=== PATIENT | male | born 1990 | race Hispanic/Latino ===

== ENCOUNTER 2017-03-05 22:26 | Emergency (ER) | payer OTHER ==
[2017-03-05 22:39] VITALS: BP 133/83
--- NOTE | 2017-03-05 23:05 | RADIOLOGY REPORT ---
EXAMINATION: XR CHEST CLINICAL INFORMATION: Bronchitis COMPARISON: None TECHNIQUE: 2 views of the chest were obtained. FINDINGS: No infiltrate. Lung sumner are grossly clear. The heart size is normal. Hilar structures are not enlarged. No effusion. IMPRESSION: No acute process.
[2017-03-06] MEDS ORDERED: BROMFED DM COU118 M1 PO (01:15)
--- NOTE | 2017-03-06 01:16 | ED INFLUENZA/URI COMPLAINT ---
History of Present Illness General Chief Complaint: General Adult Stated Complaint: "EAR PAIN, SORE THROAT,WET COUGH" Source: patient Exam Limitations: no limitations Vital Signs & Intake/Output Vital Signs & Intake/Output Vital Signs Date Time Temp Pulse Resp B/P B/P Pulse O2 O2 Flow FiO2 Mean Ox Delivery Rate 03/059 97.3 95 22 133/83 98 ED Intake and Output 03/06 0000 03/05 1200 Intake Total Output Total Balance Patient 173 lb Weight Allergies Coded Allergies: NO KNOWN ALLERGIES (02/02/13) Triage Note: PER PT DX WITH COLD 3 WEEKS AGO, STILL FEEL AWFUL MY EARS FEEL LIKE WATER IN THEM, THINK I HAVE BRONCHITIS Triage Nurses Notes Reviewed? yes HPI: Patient presents for evaluation of ear pains sore throat and a cough productive of mucus that has been present for about 3 weeks. Patient has also suffered a runny nose/nasal congestion during that time. He was prescribed Mucinex D and a metered-dose inhaler and seemed to get better. However over the past few days his symptoms have begun to get worse again. He has had no relief with over-the- counter cough and cold medications. Past History Travel History Traveled to [place] past 21 day No Medical History Any Pertinent Medical History? see below for history Neurological: NONE EENT: NONE Cardiovascular: NONE Respiratory: NONE Gastrointestinal: NONE Hepatic: NONE Renal: NONE Musculoskeletal: NONE Psychiatric: NONE Endocrine: NIDDM Surgical History Surgical History: non-contributory Psychosocial History What is your primary language Australian Tobacco Use: Current Daily Use Daily Tobacco Use Amount/Type: => 5 Cigarettes daily Family History Hx Contributory? No Review of Systems Review of Systems Constitutional: Reports: no symptoms. EENTM: Reports: see HPI. Respiratory: Reports: see HPI. Cardiovascular: Reports: no symptoms. GI: Reports: no symptoms. Genitourinary: Reports: no symptoms. Musculoskeletal: Reports: no symptoms. Skin: Reports: no symptoms. Neurological/Psychological: Reports: no symptoms. Hematologic/Endocrine: Reports: no symptoms. Immunologic/Allergic: Reports: no symptoms. All Other Systems: Reviewed and Negative Physical Exam Physical Exam Ears, Nose, Throat: SEE BELOW Comments: Gen.: Well-nourished, well-developed, no acute respiratory distress. Head: Normocephalic, atraumatic. Eyes: Normal inspection bilaterally Ears: Normal inspection bilaterally, TMs and canals normal bilaterally Nose: Normal inspection Throat/mouth : Moist mucosa , no oropharyngeal erythema soft tissue swelling or exudates Neck: Supple, full range of motion, no goiter Heart: Regular rate and rhythm, no murmurs rubs or gallops Lungs: Clear to auscultation bilaterally with normal air entry Chest: Nontender Back: Normal range of motion Abdomen: Soft, nontender, nondistended, normal bowel sounds Extremities: Normal range of motion grossly, equal radial pulses, no cyanosis clubbing or edema Neurologic: Cranial nerves grossly intact, speech is clear Skin: warm and dry Psychiatric: Calm, cooperative, no apparent delusions or hallucinations Lymphatic: No cervical lymphadenopathy Core Measures Severe Sepsis Present: No Septic Shock Present: No Progress Differential Diagnosis: influenza, otitis, pneumonia, pharyngitis, sinusitis, SEASONAL ALLERGY SYMPTOMS Plan of Care: SEE D/C INSTRUCTIONS Diagnostic Imaging: Discussed w/RAD: Radiology Read. CXR Impression: PATIENT: YONI FRIEND PRESENT AGE: 26 PATIENT ACCOUNT NO: [id number] : 88 LOCATION: ER ORDERING PHYSICIAN: LEMUEL VELASQUEZ DO (TBS) SERVICE DATE: 03/05/17 EXAM TYPE: RAD - XRY- CHEST XRAY, PA AND LATERAL EXAMINATION: XR CHEST CLINICAL INFORMATION: Bronchitis COMPARISON: None TECHNIQUE: 2 views of the chest were obtained. FINDINGS: No infiltrate. Lung sumner are grossly clear. The heart size is normal. Hilar structures are not enlarged. No effusion. IMPRESSION: No acute process. DICTATED BY: LEMUEL HOFFMAN MD DATE/TIME DICTATED:03/05/172300 LOAD DISPATCHER LOCAL:[facility] DATE/TIME TRANSCRIBED:03/05/172300 CONFIDENTIAL, DO NOT COPY WITHOUT APPROPRIATE AUTHORIZATION. <Electronically signed in Other Vendor System> SIGNED BY: LEMUEL HOFFMAN MD 03/05/172304 Initial ED EKG: none Departure Departure Disposition: HOME OR SELF CARE Condition: Stable Clinical Impression Primary Impression: Seasonal allergies Qualifiers: Chronicity: acute Allergic rhinitis trigger: unspecified Qualified Code: J30.2 - Other seasonal allergic rhinitis Referrals: UNKNOWN (PCP/Family) Additional Instructions: Bromfed-DM as prescribed for allergy symptoms or cough. You may continue the asthma inhaler if needed. Follow-up with your primary care physician in one week if not improving. At that point you may consider an antibiotic. Otherwise return if any concerns or sudden worsening. Thank you for choosing the [facility] Emergency Department for your care. It was a pleasure to serve you today. Lemuel Rivera M.D. [facility] Departure Forms: Customer Survey General Discharge Information Prescriptions: Current Visit Scripts Brompheniramine/Pseudoephed/Dm (Bromfed Dm Cough Syrup) 10 ML PO Q6P PRN COUGH/ COLD SYMPTOMS #240 ML
== END 2017-03-06 01:24 ==
LOC: ERH 22:26
DX: J30.2 Other seasonal allergic rhinitis (principal); F17.210 Nicotine dependence, cigarettes, uncomplicated

== ENCOUNTER 2017-03-10 15:05 | Emergency (ER) | payer OTHER ==
[~2017-03-10] VITALS: Ht 180.3 cm; Wt 79.4 kg
[~2017-03-10 15:05] MED LIST: BROMFED DM COU118 M1 PO
[2017-03-10 17:30] VITALS: BP 118/76
--- NOTE | 2017-03-10 17:57 | ED INFLUENZA/URI COMPLAINT ---
History of Present Illness General Chief Complaint: Ear Complaints Stated Complaint: L ?CLOGGED EAR Source: patient Exam Limitations: no limitations Vital Signs & Intake/Output Vital Signs & Intake/Output Vital Signs Date Time Temp Pulse Resp B/P B/P Pulse O2 O2 Flow FiO2 Mean Ox Delivery Rate 03/10 1730 97.0 100 17 118/76 100 Room Air 03/10 1510 97.1 106 18 116/81 98 Room Air Allergies Coded Allergies: NO KNOWN ALLERGIES (02/02/13) Reconcile Medications Amoxicillin/Potassium Clav (Augmentin 875-125 Tablet) 875 MG-125 MG TABLET 1 TAB PO BID sinusitis Brompheniramine/Pseudoephed/Dm (Bromfed Dm Cough Syrup) 2 MG-30 MG-10 MG/5 ML SYRUP 10 ML PO Q6P PRN COUGH/COLD SYMPTOMS Mometasone Furoate (Nasonex) 50 MCG SPRAY.PUMP 2 SPRAY NASB DAILY congestion Triage Note: 26 Y/O MALE C/O PAIN/"CLOGGED" BIILATERAL EARS, L>R. STATES HE WAS EVAL'D IN ED AND TOLD ITS SEASONAL ALLERGIES BUT HAS BEEN TAKING CLARITIN WITH NO RELIEF, "I THINK I NEED ANTIBIOTICS" Triage Nurses Notes Reviewed? yes Onset: Abrupt Duration: day(s): Timing: recent history No Modifying Factors: none HPI: 26-year-old male comes into emergency room for further evaluation of bilateral ear pain as well as some sinus congestion and tenderness. Patient reports symptoms being going on for almost a week. Patient was seen here this past Tuesday. Patient reports that his symptoms are still persisting. Denies any other new symptoms. Past History Travel History Traveled to [place] past 21 day No Medical History Any Pertinent Medical History? see below for history Neurological: NONE EENT: NONE Cardiovascular: NONE Respiratory: NONE Gastrointestinal: NONE Hepatic: NONE Renal: NONE Musculoskeletal: NONE Psychiatric: NONE Endocrine: NIDDM Blood Disorders: NONE Cancer(s): NONE CALCIMINER/Reproductive: NONE Surgical History Surgical History: non-contributory Psychosocial History What is your primary language Nepali Tobacco Use: Current Daily Use Daily Tobacco Use Amount/Type: => 5 Cigarettes daily Family History Hx Contributory? No Review of Systems Review of Systems Constitutional: Reports: no symptoms. EENTM: Reports: see HPI. Respiratory: Reports: no symptoms. Cardiovascular: Reports: no symptoms. GI: Reports: no symptoms. Genitourinary: Reports: no symptoms. Musculoskeletal: Reports: no symptoms. Skin: Reports: no symptoms. Neurological/Psychological: Reports: no symptoms. Hematologic/Endocrine: Reports: no symptoms. Immunologic/Allergic: Reports: no symptoms. All Other Systems: Reviewed and Negative Physical Exam Physical Exam General Appearance: well developed/nourished, no apparent distress, alert Head: atraumatic, normal appearance Eyes: Bilateral: normal appearance, EOMI. Ears, Nose, Throat: normal ENT inspection, moist mucous membrane, hearing grossly normal Neck: normal inspection Respiratory: normal breath sounds, no respiratory distress Cardiovascular: regular rate/rhythm Back: normal inspection Extremities: normal inspection Neurologic/Psych: awake, alert, oriented x 3, normal gait, normal mood/affect Skin: intact, normal color Core Measures Severe Sepsis Present: No Septic Shock Present: No Progress Differential Diagnosis: influenza, meningitis, neutropenia, otitis, pneumonia, pharyngitis, sinusitis, breasts or infection, URI Plan of Care: 03/10/2017 6:14:47 PM Patient clinically looks well. Patient is in no apparent distress. Patient is nontoxic-appearing. Resting comfortably in room. Symptoms are most consistent with sinusitis/allergic rhinitis. Due to the fact the patient is not getting better on previous medication started on oral antibiotics for possible bacterial sinusitis. Ear pain is likely from eustachian tube dysfunction from upper respiratory/sinus infection. Initial ED EKG: none Departure Departure Disposition: HOME OR SELF CARE Condition: Stable Clinical Impression Primary Impression: Sinusitis Referrals: UNKNOWN (PCP/Family) Additional Instructions: Take Augmentin and Nasonex as prescribed. Follow-up with your primary care doctor. Return if any concerns worsening symptoms. Please go over all results of today's visit with your primary care doctor. Contact your primary care doctor to let them know you were here in the emergency room. There may be nonspecific findings which may not be related to your visit today here in the emergency room but may require further evaluation and chronic monitoring by your primary care doctor. If you had a laceration today the chance of foreign body always remains. You should follow-up with your primary care doctor for recheck in 3-5 days for a wound check. If you had an x-ray done there is a chance that a fracture could have been missed on initial read and you should follow-up with your primary care doctor for repeat x-rays if symptoms persist. If your blood pressure was elevated here in the emergency room please have rechecked by her primary care doctor within the next 48 hours by your primary care doctor. If you were prescribed a narcotic here in the emergency room or any type of controlled substances you're not allowed to drive while taking this medication or operate any type of heavy machinery. Narcotics can make you feel lightheaded dizziness nausea and can cause constipation. You may need to corn picker a stool softener. Thank you for choosing [facility] emergency room. Please return to the emergency room immediately if you have any other concerns worsening of symptoms. Departure Forms: Customer Survey General Discharge Information Prescriptions: Current Visit Scripts Amoxicillin/Potassium Clav (Augmentin 875-125 Tablet) 1 TAB PO BID #20 TAB Mometasone Furoate (Nasonex) 2 SPRAY NASB DAILY #1 INHAL
[2017-03-10] MEDS ORDERED: NASONEX17 GM NASB (17:58)
[2017-03-10] MEDS ORDERED: AUGMENTIN 875-1 EACH PO (17:58)
== END 2017-03-10 18:25 ==
LOC: ERH 15:05
DX: J32.9 Chronic sinusitis, unspecified (principal); F17.210 Nicotine dependence, cigarettes, uncomplicated